=== PATIENT | female | born 1980 | race Caucasian/White ===

== ENCOUNTER 2019-12-17 17:40 | Emergency (ER) | payer SELFPAY ==
[~2019-12-17] VITALS: Ht 157.5 cm; Wt 90.9 kg
[2019-12-17 18:44] LABS: BACTERIA,URINE 0 /HPF (0-FEW); BILIRUBIN,URINE SMALL (NEG); CLARITY,URINE CLOUDY; COLOR,URINE AMBER; GLUCOSE,URINE NEG (NEG); NITRITE,URINE NEG (NEG); RBC,URINE TNTC /HPF (0-2); SQUAMOUS EPITHELIAL CELL,UR OCC /LPF; WBC,URINE RARE /HPF (0-4)
[2019-12-17] MEDS ORDERED: IV NORMAL SALINE 1,000ML 1,000 ML IV ONE (18:45)
[2019-12-17] MEDS ORDERED: MORPHINE SULFATE 4 MG/ML DISP.SYRIN. IV ONE (18:45)
--- NOTE | 2019-12-17 19:04 | PHYS DOC ---
Past History Past Medical History: Depression, Other Additional Past Medical Histor: CHRONIC LOW BACK PAIN Past Surgical History: Hysterectomy, Oophorectomy, Other Additional Past Surgical Histo: TRIGGER THUMB RELEASE; LEFT ANKLE Alcohol Use: None Adult General Chief Complaint Chief Complaint: FLANK PAIN HPI HPI Patient is a 39-year-old female who presents to the emergency room complaining of the left flank pain that started 3 days ago. She works in a physician's office and they did a UA on her yesterday and started her on antibiotics and gave her a Toradol shot. The Toradol shot helped minimally. Tylenol has not helped at all at home. She states her UA showed blood yesterday. She continues to have pain that shoots into her abdomen. She denies any nausea, vomiting, diarrhea, constipation. She has not had any fevers. She denies any respiratory symptoms. Review of Systems Review of Systems Complete ROS is negative unless otherwise documented in HPI Current Medications Current Medications Current Medications Medications (Trade) Dose Ordered Sig/Kushal Start Time Stop Time Status Last Admin Dose Admin Morphine Sulfate (Morphine 4mg Syringe) 4 mg 1X ONCE 12/17/19 18:45 12/17/19 18:46 DC Sodium Chloride 1,000 ml @ 1,000 mls/hr 1X ONCE 12/17/19 18:45 12/17/19 19:44 Allergies Allergies Allergies Coded Allergies Type Severity Reaction Last Updated Verified No Known Drug Allergies 12/17/19 No Physical Exam Physical Exam General: Awake, alert, NAD. Well Nourished, well hydrated. Cooperative HEENT: Atraumatic, EOMI, PERRL, airway patent, moist oral mucosa Neck: Supple, trachea midline Respiratory: CTA bilaterally, normal effort, no wheezing/crackles CV: RRR, no murmur, cap refill <2 GI: Soft, nondistended, nontender, no masses MSK: No obvious deformities Skin: Warm, dry, intact Neuro: A&O x3, speech NL, sensory and motor grossly intact, no focal deficits Psych: Normal affect, normal mood, not suicidal or homicidal Current Patient Data Vital Signs Vital Signs Date Time Temp Pulse Resp B/P (MAP) Pulse Ox O2 Delivery O2 Flow Rate FiO2 12/17/19 18:00 98.1 84 18 108/71 (83) 95 Room Air Lab Results Laboratory Tests Test 12/17/19 17:52 Urine Collection Type Unknown Urine Color Lesa Urine Clarity Cloudy Urine pH 5.0 Urine Specific [place] >=1.030 Urine Protein 100 mg/dl (NEG-TRACE) Urine Glucose (UA) Neg mg/dL (NEG) Urine Ketones (Stick) Neg mg/dL (NEG) Urine Blood Large (NEG) Urine Nitrite Neg (NEG) Urine Bilirubin Small (NEG) Urine Urobilinogen Dipstick 1.0 mg/dL (0.2 mg/dL) Urine Leukocyte Esterase Neg (NEG) Urine RBC Tntc /HPF (0-2) Urine WBC Rare /HPF (0-4) Urine Squamous Epithelial Cells Occ /LPF Urine Bacteria 0 /HPF (0-FEW) EKG EKG [] Radiology/Procedures Radiology/Procedures [] Heart Score Risk Factors: Risk Factors: DM, Current or recent (<one month) smoker, HTN, HLP, family history of CAD, obesity. Risk Scores: Risk Factors: DM, Current or recent (<one month) smoker, HTN, HLP, family history of CAD, obesity. Course & Med Decision Making Course & Med Decision Making Pertinent Labs and Imaging studies reviewed. (See chart for details) Patient is a 39 year old who presents to the Emergency Room complaining of flank pain. On exam, patient has left flank tenderness. Patient's presentation is concerning for a possible kidney stone. Patient was given morphine for pain relief. CBC, BMP, UA were ordered to evaluate for kidney function and infection. CT abdomen and pelvis without contrast was ordered to evaluate for a kidney stone. CT is negative. I have discussed with the patient that if she continues to have hematuria which is not improved by the antibiotic she is currently on then she should follow-up with her primary care physician for possible nephrology. Patient's test results and vitals while in the ED were fully reviewed and discussed with the patient. Patient is stable and at this time does not need admission to the hospital. We have discussed strict return precautions and the importance of following up with their Primary Care Physician. Patient stated understanding and was given an opportunity to ask any questions. Patient is in agreement with plan. Dragon Disclaimer Dragon Disclaimer This electronic medical record was generated, in whole or in part, using a voice recognition dictation system. Departure Departure: Impression: Primary Impression: Flank pain Additional Impression: Hematuria Disposition: 01 DC HOME SELF CARE/HOMELESS Condition: STABLE Referrals: PCP,NO (PCP) Patient Instructions: Flank Pain, Hematuria, Adult Scripts Oxycodone HCl/Acetaminophen (Percocet 5-325 mg Tablet) 1 Each Tablet 1 TAB PO PRN TID PRN for severe jacob MDD 3 Tablet(s) for 5 Days, #10 TAB 0 Refills Prov: HAYDEE RICHARD MD 12/17/19 Problem Qualifiers HAYDEE RICHARD MD Dec 17, 2019 19:03
--- NOTE | 2019-12-17 19:21 | RAD ---
Exam: CT abdomen/pelvis without contrast Indication: Severe right flank pain, blood in urine for 2 days Comparison: None Technique: Helical CT imaging performed of the abdomen and pelvis without contrast. Sagittal and coronal reformats were obtained. One or more of the following individualized dose reduction techniques were utilized for this examination: 1. Automated exposure control 2. Adjustment of the mA and/or kV according to patient size 3. Use of iterative reconstruction technique. Findings: Lower chest: Normal Liver: The liver is normal in size and attenuation. Gallbladder/Biliary Tree: Normal. Pancreas: There is relative hypodensity in the pancreatic head and uncinate process relative to the rest of the pancreas. No pancreatic duct dilatation or peripancreatic fat stranding. Spleen: Normal. Adrenal Glands: Normal. Kidneys/Ureters/Bladder: Kidneys are normal in size. No urolithiasis or hydronephrosis. Ureters are normal. The bladder is incompletely distended, limiting evaluation. Reproductive Organs: The uterus is surgically absent. No adnexal mass. Stomach, small bowel, and colon: Stomach, small bowel, appendix, and colon are normal. Vasculature: Abdominal aorta and inferior vena cava are normal in caliber. Lymph Nodes: No lymphadenopathy. Peritoneum and retroperitoneum: No free fluid or free air. Bones: No acute osseous abnormality. Impression: 1. No urolithiasis or hydronephrosis. 2. Relative hypodensity in the pancreatic head and uncinate process relative to the rest the pancreas is likely due to focal fatty atrophy. Hypodense pancreatic lesion not entirely excluded. Consider MRI of the pancreas to exclude underlying mass. Electronically signed by: Kimberley Pardo MD (12/17/2019 7:18 PM) [id number]
[2019-12-17 19:48] LABS: BASO % 0 % (0-3); EOS # 0.1 x10^3/uL (0.0-0.7); EOS % 1 % (0-3); HEMATOCRIT 37.9 % (36.0-47.0); HEMOGLOBIN 12.4 g/dL (12.0-15.5); LYMPH # 4.6 x10^3/uL (1.0-4.8); LYMPH % 51 % (24-48); MEAN CORPUSCULAR HEMOGLOBIN 30 pg (25-35); MEAN CORPUSCULAR HGB CONC 33 g/dL (31-37); MEAN CORPUSCULAR VOLUME 91 fL (79-100); MONO # 0.6 x10^3/uL (0.0-1.1); MONO % 6 % (0-9); NEUT # 3.8 x10^3uL (1.8-7.7); NEUT % 42 % (31-73); PLATELET COUNT 319 x10^3/uL (140-400); RED BLOOD COUNT 4.17 x10^6/uL (3.50-5.40); RED CELL DISTRIBUTION WIDTH 14.2 % (11.5-14.5)
[2019-12-17 19:54] LABS: CALCIUM 8.4 mg/dL (8.5-10.1); CREATININE 1.1 mg/dL (0.6-1.0); GFR 54.7; POTASSIUM 3.6 mmol/L (3.5-5.1)
[2019-12-17 20:21] VITALS: BP 115/71
[2019-12-17] MEDS ORDERED: OXYC-325 PO (21:10)
== END 2019-12-17 21:05 | disposition home or self-care (01) ==
LOC: ER 17:40
DX: R10.9 Unspecified abdominal pain (principal); R31.9 Hematuria, unspecified; G89.29 Other chronic pain; F32.9 Major depressive disorder, single episode, unspecified; Z90.710 Acquired absence of both cervix and uterus; Z90.722 Acquired absence of ovaries, bilateral
CPT/HCPCS: 36415; 74176; 80048; 81001; 85025; 96361; 96374; 99284; J2270; J7030